=== PATIENT | male | born 1955 | race American Indian/Alaskan Native ===

== ENCOUNTER 2018-10-06 16:57 | Observation (INO) | payer MEDICAID ==
--- NOTE | 2018-10-06 17:54 | Emergency Department Report ---
Blank Doc - Documentation Documentation: This is a 63-year-old male that presents with right flank pain and chest pain. Denies any SOB. This initial assessment/diagnostic orders/clinical plan/treatment(s) is/are subject to change based on patient's health status, clinical progression and re- assessment by fellow clinical providers in the ED. Further treatment and workup at subsequent clinical providers discretion. Patient/guardians urged not to elope from the ED as their condition may be serious if not clinically assessed and managed. Initial orders include: 1- Patient sent to [facility] for further evaluation and treatment 2- labs 3- EKG 4- CXR
[2018-10-06 18:17] LABS: Basophils % (Auto) 0.7 % (0.0-1.8); Eosinophils # (Auto) 0.1 K/mm3 (0.0-0.4); Hematocrit 39.6 % (35.5-45.6); Hemoglobin 13.3 gm/dl (11.8-15.2); Lymphocytes # (Auto) 1.5 K/mm3 (1.2-5.4); Lymphocytes % (Auto) 27.2 % (13.4-35.0); Mean Corpuscular HGB Conc 34 % (32-34); Mean Corpuscular Volume 94 fl (84-94); Monocytes # (Auto) 0.5 K/mm3 (0.0-0.8); Monocytes % (Auto) 9.1 % (0.0-7.3); Platelet Count 163 K/mm3 (140-440); Red Blood Count 4.23 M/mm3 (3.65-5.03); Red Cell Distribution Width 14.8 % (13.2-15.2)
[2018-10-06 18:30] LABS: BUN/Creatinine Ratio 13; Blood Urea Nitrogen 12 mg/dL (9-20); Calcium 8.9 mg/dL (8.4-10.2); Hemolysis Index 11
[2018-10-06 18:39] LABS: INR 1.03 (0.87-1.13)
[2018-10-06 18:41] LABS: Partial Thromboplastin Time 24.9 Sec. (24.2-36.6)
--- NOTE | 2018-10-06 19:28 | XRay Report ---
PROCEDURE: XR CHEST ROUTINE 2V TECHNIQUE: PA and lateral chest radiographs were obtained. HISTORY: Chest Pain COMPARISONS: None. FINDINGS: Heart: Normal. Mediastinum/Vessels: Normal. Lungs/Pleural space: Normal. Bony thorax: No acute osseous abnormality. Other: Surgical clips in the right axilla noted IMPRESSION: No acute cardiopulmonary process seen.. This document is electronically signed by Dayanara Aleman MD., October 06 2018 07:27:10 PM ET
[2018-10-06] MEDS ORDERED: SUBLIMAZE IV ONE (20:55)
[2018-10-06] MEDS ORDERED: ZOFRAN IV ONE (20:55)
--- NOTE | 2018-10-06 20:59 | Emergency Department Report ---
HPI - General Chief Complaint: Abdominal Pain Time Seen by Provider: 10/06/18 17:53 - HPI HPI: Marcus Uribe The patient is 61-year-old male presenting with chief complaint of chest pain and abdominal pain. The patient states for the past 2-3 months he's had pain in his left chest and right abdomen. Patient states the pain in the left chest has been constant and sharp in nature. Patient states at times his had nausea but denies vomiting or shortness of breath. Patient states sometimes she has diaphoresis with this pain. Patient admits to a nonproductive cough and pleurisy. Patient states his right-sided abdominal pain was initially intermittent but for the past 2 days and has been constant. Patient states has been no change in his abdominal pain with meals. Patient denies any unexplained weight loss or fevers. Patient currently gets his pain score of 10/10 Location: [See above] Duration: [See above] Quality: [See above] Severity: [See above] Modifying factors: [see above] Context: [see above] Mode of transportation: [not driving] ED Past Medical Hx - Past Medical History Previous Medical History?: Yes Hx Hypertension: Yes Additional medical history: Gout - Surgical History Past Surgical History?: Yes Additional Surgical History: skin graft- left leg - Family History Family history: no significant - Social History Smoking Status: Former Smoker (none 2 years) Substance Use Type: None (denies illicit drug use), Alcohol (occasional) - Medications Home Medications: Home Medications Medication Instructions Recorded Confirmed Last Taken Type methOCARBAMOL [Robaxin TAB] 750 mg PO BID PRN #12 tab 07/07/13 07/17/13 Unknown Rx Metoprolol [Lopressor TAB] 25 mg PO BID #60 tablet 07/20/13 Unknown Rx Metoprolol [Lopressor TAB] 25 mg PO BID #60 tablet 07/20/13 Unknown Rx Pantoprazole [Protonix] 20 mg OD QDAY #30 tablet. 07/20/13 Unknown Rx Simvastatin 20 mg PO QHS #30 tablet 07/20/13 Unknown Rx Simvastatin (Nf) [Zocor] 20 mg PO QHS #30 tablet 07/20/13 Unknown Rx methOCARBAMOL [Robaxin TAB] 750 mg PO BID #60 tablet 07/20/13 Unknown Rx Ibuprofen [Motrin 800 MG tab] 800 mg PO Q8HR PRN #20 tablet 08/17/15 Unknown Rx Cyclobenzaprine HCl [Flexeril 5 MG 5 mg PO Q8HR PRN #15 tab 09/03/15 Unknown Rx TAB] ED Review of Systems ROS: Stated complaint: CHEST PAIN/R SIDE PAIN Other details as noted in HPI Constitutional: denies: fever Eyes: denies: eye pain ENT: denies: throat pain Respiratory: denies: shortness of breath Cardiovascular: chest pain Endocrine: no symptoms reported Gastrointestinal: abdominal pain, nausea. denies: vomiting Genitourinary: denies: dysuria Musculoskeletal: denies: back pain Neurological: denies: headache Physical Exam - Physical Exam Vital Signs: Vital Signs 10/06/18 17:54 Temperature 98.6 F Pulse Rate 76 Respiratory 17 Rate Blood Pressure 136/91 O2 Sat by Pulse 98 Oximetry Physical Exam: GENERAL: The patient is well-developed well-nourished male lying on stretcher not appearing to be in acute distress. [] HEENT: Normocephalic. Atraumatic. Extraocular motions are intact. Patient has moist mucous membranes. NECK: Supple. Trachea midline CHEST/LUNGS: Clear to auscultation. There is no respiratory distress noted. HEART/CARDIOVASCULAR: Regular. There is no tachycardia. There is no gallop rub or murmur. ABDOMEN: Abdomen is soft, nontender. Patient has normal bowel sounds. There is no abdominal distention. SKIN: There is no rash. There is no edema. There is no diaphoresis. NEURO: The patient is awake, alert, and oriented. The patient is cooperative. The patient has normal speech MUSCULOSKELETAL: There is no evidence of acute injury. ED Course Vital Signs 10/06/18 17:54 Temperature 98.6 F Pulse Rate 76 Respiratory 17 Rate Blood Pressure 136/91 O2 Sat by Pulse 98 Oximetry - Consultations Consultation #1: 10/06/18 18:[address] Chase-no STEMI ED Medical Decision Making - Lab Data Result diagrams: 10/06/18 18:03 10/06/18 18:03 Laboratory Tests 10/06/18 10/06/18 10/06/18 18:03 18:03 18:03 WBC 5.6 RBC 4.23 Hgb 13.3 Hct 39.6 MCV 94 MCH 31 MCHC 34 RDW 14.8 Plt Count 163 Lymph % (Auto) 27.2 [place] % (Auto) 9.1 H Eos % (Auto) 1.0 Baso % (Auto) 0.7 Lymph # 1.5 [place] # 0.5 Eos # 0.1 Baso # 0.0 Seg Neutrophils % 62.0 Seg Neutrophils # 3.5 PT 13.2 INR 1.03 APTT 24.9 Sodium 136 L Potassium 4.1 Chloride 100.8 Carbon Dioxide 26 Anion Gap 13 BUN 12 Creatinine 0.9 Estimated GFR > 60 BUN/Creatinine Ratio 13 Glucose 105 H Calcium 8.9 Troponin T < 0.010 10/06/18 20:14 WBC RBC Hgb Hct MCV MCH MCHC RDW Plt Count Lymph % (Auto) [place] % (Auto) Eos % (Auto) Baso % (Auto) Lymph # [place] # Eos # Baso # Seg Neutrophils % Seg Neutrophils # PT INR APTT Sodium Potassium Chloride Carbon Dioxide Anion Gap BUN Creatinine Estimated GFR BUN/Creatinine Ratio Glucose Calcium Troponin T < 0.010 - EKG Data -: EKG Interpreted by Me EKG shows normal: sinus rhythm Rate: normal - EKG Data When compared to previous EKG there are: previous EKG unavailable Interpretation: nonspecific ST-T wave carito - Radiology Data Radiology results: report reviewed (chest x-ray, CT chest, CT abdomen and pelvis), image reviewed (chest x-ray, CT chest, CT abdomen and pelvis) interpreted by me: Chest x-ray-no focal infiltrates, no pneumothorax [address] [address] XRay Report Signed Patient: SHERIF THAKKAR MR#: [id number] : 1955 Acct:[id number] Age/Sex: 63 / M ADM Date: 10/06/18 Loc: ED Attending Dr: Ordering Physician: MONA HANNA NP Date of Service: 10/06/18 Procedure(s): XR chest routine 2V Accession Number(s): [id number] cc: MONA HANNA NP Fluoro Time In Minutes: PROCEDURE: XR CHEST ROUTINE 2V TECHNIQUE: PA and lateral chest radiographs were obtained. HISTORY: Chest Pain COMPARISONS: None. FINDINGS: Heart: Normal. Mediastinum/Vessels: Normal. Lungs/Pleural space: Normal. Bony thorax: No acute osseous abnormality. Other: Surgical clips in the right axilla noted IMPRESSION: No acute cardiopulmonary process seen.. This document is electronically signed by Dayanara Aleman MD., October 06 2018 07:27:10 PM ET Transcribed By: [facility] Dictated By: DAYANARA ALEMAN MD Electronically Authenticated By: DAYANARA ALEMAN MD Signed Date/Time: 10/06/181927 DD/ [address] [address] Cat Scan Report Signed Patient: SHERIF THAKKAR MR#: [id number] : 1955 Acct:[id number] Age/Sex: 63 / M ADM Date: 10/06/18 Loc: ED Attending Dr: Ordering Physician: LEXUS CROUCH MD Date of Service: 10/06/18 Procedure(s): CT angio chest Accession Number(s): [id number] cc: LEXUS CROUCH MD PROCEDURE: CT ANGIO CHEST TECHNIQUE: Computerized tomographic angiography of the chest was performed after the IV injection of iodinated nonionic contrast including image processing. The image data was postprocessed using 2-dimensional multiplanar reformatted (MPR) and 3-dimensional (MIP and/or volume rendered) techniques. Automated exposure control, adjustment of mA and/or kV according to patient size, or iterative reconstruction dose optimization techniques were utilized. CT DOSE LENGTH PRODUCT: 2044.7 mGycm HISTORY: left chest pain, pleurisy COMPARISONS: CXR 10/06/2018 . FINDINGS: Heart and pericardium: Normal. Thoracic aorta: Mild calcification of aorta is seen. Pulmonary vasculature: Normal. No evidence for PE Lymph nodes: No enlarged thoracic lymph nodes. Lungs: Normal. Pleural space: No effusion, thickening, or pneumothorax. Musculoskeletal structures: No significant abnormality. Upper abdominal structures: No significant abnormality. IMPRESSION: No acute intrathoracic abnormality. No evidence for PE. This document is electronically signed by Dayanara Aleman MD., October 06 2018 10:28:59 PM ET Transcribed By: EUGENIA Dictated By: DAYANARA ALEMAN MD Electronically Authenticated By: DAYANARA ALEMAN MD Signed Date/Time: 10/06/182230 DD/ 04 TD/TT: 10/06/182204 [address] [address] Cat Scan Report Signed Patient: SHERIF THAKKAR MR#: [id number] : 1955 Acct:[id number] Age/Sex: 63 / M ADM Date: 10/06/18 Loc: ED Attending Dr: Ordering Physician: LEXUS CROUCH MD Date of Service: 10/06/18 Procedure(s): CT abdomen pelvis w con Accession Number(s): [id number] cc: LEXUS CROUCH MD PROCEDURE: CT ABDOMEN PELVIS W CON TECHNIQUE: Computerized axial tomography of the abdomen and pelvis was performed after the administration of IV iodinated nonionic contrast. HISTORY: right-sided abdominal pain COMPARISONS: None . FINDINGS: Visualized lower thorax: No significant abnormality. Liver: Normal size and attenuation. Spleen: Normal size and attenuation. Gallbladder and biliary system: Gallbladder is present. No biliary ductal dilatation. Pancreas: Normal. Adrenals: Normal. Kidneys: Normal. GI tract: No appendiceal inflammation. No bowel obstruction or inflammation. Lymph nodes and mesentery: Normal. Vasculature: Aortic atherosclerotic calcification. Bladder: Normal. Reproductive organs: Prostate gland measures 4.9 cm transverse. Prostate calcifications are present. Peritoneum: No free fluid. Musculoskeletal structures: There are degenerative disc changes at L4-5 and L5- S1. Endplate erosions are seen at L5-S1, which could be degenerative.. Other: None. IMPRESSION: No bowel obstruction or inflammation. No hydronephrosis or urolithiasis. There are degenerative disc changes at L4-5 and L5-S1. Endplate erosions are seen at L5/S1, which could be chronic. However if there is low back pain and signs of infection, further evaluation should be made to exclude discitis/osteomyelitis. Correlate clinically. Finding was discussed by telephone with Dr. Crouch at 11:07 PM Eastern standard time on 10/06/2018. This document is electronically signed by Ana Murillo MD., October 06 2018 11:11:47 PM ET Transcribed By: [facility] Dictated By: ANA MURILLO M.D. Electronically Authenticated By: ANA MURILLO M.D. Signed Date/Time: 10/06/18 2313 DD/ 17 TD/TT: 10/06/182217 - Differential Diagnosis ACS, pericarditis, PE, cholelithiasis, colonic mass Critical care attestation.: If time is entered above; I have spent that time in minutes in the direct care of this critically ill patient, excluding procedure time. ED Disposition Clinical Impression: Chest pain Disposition: OP ADMIT IP TO THIS HOSP Is pt being admited?: Yes Does the pt Need Aspirin: Yes Condition: Stable Instructions: Chest Pain (ED) Referrals: ISABELA BRAND MD [Primary Care Provider] - 3-5 Days Time of Disposition: 23:45 (hospitalist paged (Dr. Jannette Prescott))
--- NOTE | 2018-10-06 22:31 | Cat Scan Report ---
PROCEDURE: CT ANGIO CHEST TECHNIQUE: Computerized tomographic angiography of the chest was performed after the IV injection of iodinated nonionic contrast including image processing. The image data was postprocessed using 2-di mensional multiplanar reformatted (MPR) and 3-dimensional (MIP and/or volume rendered) techniques. Au tomated exposure control, adjustment of mA and/or kV according to patient size, or iterative reconstr uction dose optimization techniques were utilized. CT DOSE LENGTH PRODUCT: 2044.7 mGycm HISTORY: left chest pain, pleurisy COMPARISONS: CXR 10/06/2018 . FINDINGS: Heart and pericardium: Normal. Thoracic aorta: Mild calcification of aorta is seen. Pulmonary vasculature: Normal. No evidence for PE Lymph nodes: No enlarged thoracic lymph nodes. Lungs: Normal. Pleural space: No effusion, thickening, or pneumothorax. Musculoskeletal structures: No significant abnormality. Upper abdominal structures: No significant abnormality. IMPRESSION: No acute intrathoracic abnormality. No evidence for PE. This document is electronically signed by Dayanara Aleman MD., October 06 2018 10:28:59 PM ET
--- NOTE | 2018-10-06 23:13 | Cat Scan Report ---
PROCEDURE: CT ABDOMEN PELVIS W CON TECHNIQUE: Computerized axial tomography of the abdomen and pelvis was performed after the administr ation of IV iodinated nonionic contrast. HISTORY: right-sided abdominal pain COMPARISONS: None . FINDINGS: Visualized lower thorax: No significant abnormality. Liver: Normal size and attenuation. Spleen: Normal size and attenuation. Gallbladder and biliary system: Gallbladder is present. No biliary ductal dilatation. Pancreas: Normal. Adrenals: Normal. Kidneys: Normal. GI tract: No appendiceal inflammation. No bowel obstruction or inflammation. Lymph nodes and mesentery: Normal. Vasculature: Aortic atherosclerotic calcification. Bladder: Normal. Reproductive organs: Prostate gland measures 4.9 cm transverse. Prostate calcifications are present. Peritoneum: No free fluid. Musculoskeletal structures: There are degenerative disc changes at L4-5 and L5-S1. Endplate erosions are seen at L5-S1, which could be degenerative.. Other: None. IMPRESSION: No bowel obstruction or inflammation. No hydronephrosis or urolithiasis. There are degenerative disc changes at L4-5 and L5-S1. Endplate erosions are seen at L5/S1, which cou ld be chronic. However if there is low back pain and signs of infection, further evaluation should be made to exclude discitis/osteomyelitis. Correlate clinically. Finding was discussed by telephone wit antonio Kilpatrick at 11:07 PM Eastern standard time on 10/06/2018. This document is electronically signed by Ana Murillo MD., October 06 2018 11:11:47 PM ET
[2018-10-06] MEDS ORDERED: ASPIRIN PO ONE (23:30)
[2018-10-06] MEDS ORDERED: NITRO-BID 2% TP ONE (23:30)
[2018-10-06 23:50] LABS: Bilirubin,Urine NEG (Negative); Blood,Urine NEG (Negative); Color,Urine Yellow (Yellow); Mucus,Urine FEW /HPF; Protein,Urine <15 mg/dL mg/dL (Negative); Urobilinogen,Urine < 2.0 mg/dL (<2.0); WBC,Urine < 1.0 /HPF (0.0-6.0)
--- NOTE | 2018-10-06 23:59 | History and Physical Report ---
History of Present Illness Date of examination: 10/06/18 History of present illness: 63-year-old man with history of hypertension complaints of chest in the epigastric area and right flank pain that started 4 months ago. HE has not seen a physician for the pain. He described as a sharp, constant, intensity 5/10,no radiation, relieved with pain medications in ER. He denies nausea vomiting, diaphoresis, shortness of breath no palpitations Review of systems Constitutional: no weight loss, chills, fever Ears, eyes, nose, mouth and throat: no nasal congestion, no nasal discharge, no sinus pressure, no vision change, no red eye. Neck: No neck pain or rigidity. Cardiovascular: no palpitations Respiratory: no cough, shortness of breath Gastrointestinal: no hematochezia, abdominal pain Genitourinary : no frequency , no hematuria Musculoskeletal: no joint swelling or muscle ache Integumentary: no rash, no pruritis Neurological: no parathesias, no focal weakness Endocrine: no cold or heat intolerance, no polyuria or polydipsia Hematologic/Lymphatic: no easy bruising, no easy bleeding, no gland swelling Allergic/Immunologic: no urticaria, no angioedema. PAST MEICAL HISTORY:hypertension PAST SURGICAL HISTORY:SKIN GRAFT SOCIAL HISTORY:No tobacco, drugs, +alcohol FAMILY HISTORY:hypertension Medications and Allergies Allergies Allergy/AdvReac Type Severity Reaction Status Date / Time lisinopril Allergy Angioedema Verified 04/20/13 08:57 Home Medications Medication Instructions Recorded Confirmed Last Taken Type Pantoprazole [Protonix TAB] 20 mg OD QDAY #30 tablet. 07/20/13 10/07/18 10/06/18 09:00 Rx Simvastatin 20 mg PO QHS #30 tablet 07/20/13 10/07/18 10/06/18 21:00 Rx Simvastatin (Nf) [Zocor TAB] 20 mg PO QHS #30 tablet 07/20/13 10/07/18 10/06/18 21:00 Rx Ibuprofen [Motrin 800 MG tab] 800 mg PO Q8HR PRN #20 tablet 08/17/15 10/07/18 Unknown Rx Cyclobenzaprine HCl [Flexeril 5 MG 5 mg PO Q8HR PRN #15 tab 09/03/15 10/07/18 Unknown Rx TAB] Colchicine 0.6 mg PO BID #10 capsule 10/08/18 Unknown Rx Ibuprofen [Motrin 400 MG tab] 400 mg PO Q6H PRN #20 tablet 10/08/18 Unknown Rx amLODIPine [Norvasc] 5 mg PO QDAY #30 tablet 10/08/18 Unknown Rx Exam - Physical Exam Narrative exam: General Apperance: The patient lying in bed, breathing comfortable HEENT: Normocephalic, atraumatic. Pupils equally round and reactive to light, EOMI, no sclericterus or JVD or thyromegaly or nodule. , no carotid bruit, mucous membranes moist, no exudate or erythema Heart: S1-S2, regular is rhythm Lungs: Clear to auscultation bilaterally, breathing comfortable Abdomen: Positive bowel sounds, soft, nontender, nondistended, no organomegaly Extremities: No edema cyanosis clubbing Skin: no rash, nodule, warm and dry Neuro: cranial nerves 2-12 intact, speech is fluent, motor/sensory intact - Constitutional Vitals: Temp Pulse Resp BP Pulse Ox 98.2 F 69 20 138/90 98 10/06/18 21:11 10/06/18 21:11 10/06/18 21:15 10/06/18 21:11 10/06/18 21:15 Results - Labs CBC & Chem 7: 10/07/18 04:05 10/07/18 04:05 Labs: Abnormal lab results 10/06/18 10/06/18 Range/Units 18:03 18:03 [place] % (Auto) 9.1 H (0.0-7.3) % Sodium 136 L (137-145) mmol/L Glucose 105 H (75-100) mg/dL - Imaging and Cardiology EKG: image reviewed CT scan - abdomen: report reviewed CT scan - chest: report reviewed CT scan - pelvis: report reviewed Assessment and Plan Assessment Chest pain hypertension Plan Admit to medicine Check cardiac enzymes, stress test DVT prophalaxis, IV morphine
[2018-10-07] MEDS ORDERED: TYLENOL PO PRN (01:20)
[2018-10-07] MEDS ORDERED: SODIUM CHLORIDE FLUSH SYRINGE 10 ML IV PRN (01:20)
[2018-10-07] MEDS ORDERED: ZOFRAN IV PRN (01:20)
[2018-10-07 05:15] LABS: Basophils # (Auto) 0.1 K/mm3 (0.0-0.1); Basophils % (Auto) 1.2 % (0.0-1.8); Eosinophils # (Auto) 0.1 K/mm3 (0.0-0.4); Eosinophils % (Auto) 2.4 % (0.0-4.3); Hematocrit 35.5 % (35.5-45.6); Hemoglobin 12.1 gm/dl (11.8-15.2); Lymphocytes # (Auto) 1.8 K/mm3 (1.2-5.4); Lymphocytes % (Auto) 34.4 % (13.4-35.0); Mean Corpuscular HGB Conc 34 % (32-34); Mean Corpuscular Volume 94 fl (84-94); Monocytes # (Auto) 0.4 K/mm3 (0.0-0.8); Monocytes % (Auto) 7.5 % (0.0-7.3); Platelet Count 142 K/mm3 (140-440); Red Blood Count 3.77 M/mm3 (3.65-5.03); Red Cell Distribution Width 14.6 % (13.2-15.2)
[2018-10-07 05:47] LABS: BUN/Creatinine Ratio 11; Blood Urea Nitrogen 10 mg/dL (9-20); Calcium 8.7 mg/dL (8.4-10.2); Hemolysis Index 7
[2018-10-07] MEDS: SODIUM CHLORIDE FLUSH SYRINGE 10 ML IV SCH ×2 (09:42→21:53)
[2018-10-07] MEDS: LOVENOX SUB-Q SCH (09:42)
--- NOTE | 2018-10-07 17:40 | Progress Note ---
Assessment and Plan Assessment and plan: Right lower chest pain. CT chest unremarkable Continue analgesics for pain control Right flank pain CT Abd, no renal lesions will get US Abd Hypertension Monitor BP Continue Amlodipine Hyperlipidemia Continue statin FULL CODE STATUS History Interval history: Right lower cheest and right flank pain Hospitalist Physical - Physical exam Narrative exam: Gen: Not in acute distress, lying in bed, HEENT: Normocephalic, atraumatic Neck: supple, no JVD Heart: S1 and S2 reg, no murmurs, rubs or gallop Lungs: Clear, no crackles, no wheeze Abd: soft, non tender, non distended, normal BS Ext: No edema, no clubbing, no cyanosis, Neuro: Awake,alert, oriented x 3, moves all ext, non focal Psych:Normal mood - Constitutional Vitals: Temp Pulse Resp BP Pulse Ox 98.5 F 58 L 14 144/88 97 10/07/18 17:07 10/07/18 17:07 10/07/18 17:07 10/07/18 17:07 10/07/18 17:07 Results - Labs CBC & Chem 7: 10/07/18 04:05 10/07/18 04:05 Labs: Laboratory Last Values WBC 5.2 K/mm3 (4.5-11.0) 10/07/18 04:05 RBC 3.77 M/mm3 (3.65-5.03) 10/07/18 04:05 Hgb 12.1 gm/dl (11.8-15.2) 10/07/18 04:05 Hct 35.5 % (35.5-45.6) 10/07/18 04:05 MCV 94 fl (84-94) 10/07/18 04:05 MCH 32 pg (28-32) 10/07/18 04:05 MCHC 34 % (32-34) 10/07/18 04:05 RDW 14.6 % (13.2-15.2) 10/07/18 04:05 Plt Count 142 K/mm3 (140-440) 10/07/18 04:05 Lymph % (Auto) 34.4 % (13.4-35.0) 10/07/18 04:05 [place] % (Auto) 7.5 % (0.0-7.3) H 10/07/18 04:05 Eos % (Auto) 2.4 % (0.0-4.3) 10/07/18 04:05 Baso % (Auto) 1.2 % (0.0-1.8) 10/07/18 04:05 Lymph # 1.8 K/mm3 (1.2-5.4) 10/07/18 04:05 [place] # 0.4 K/mm3 (0.0-0.8) 10/07/18 04:05 Eos # 0.1 K/mm3 (0.0-0.4) 10/07/18 04:05 Baso # 0.1 K/mm3 (0.0-0.1) 10/07/18 04:05 Seg Neutrophils % 54.5 % (40.0-70.0) 10/07/18 04:05 Seg Neutrophils # 2.8 K/mm3 (1.8-7.7) 10/07/18 04:05 PT 13.2 Sec. (12.2-14.9) 10/06/18 18:03 INR 1.03 (0.87-1.13) 10/06/18 18:03 APTT 24.9 Sec. (24.2-36.6) 10/06/18 18:03 Sodium 140 mmol/L (137-145) 10/07/18 04:05 Potassium 3.5 mmol/L (3.6-5.0) L 10/07/18 04:05 Chloride 103.5 mmol/L (98-107) 10/07/18 04:05 Carbon Dioxide 23 mmol/L (22-30) 10/07/18 04:05 17 mmol/L 10/07/18 04:05 BUN 10 mg/dL (9-20) 10/07/18 04:05 0.9 mg/dL (0.8-1.5) 10/07/18 04:05 Estimated GFR > 60 ml/min 10/07/18 04:05 11 % 10/07/18 04:05 Glucose 141 mg/dL (75-100) H 10/07/18 04:05 Calcium 8.7 mg/dL (8.4-10.2) 10/07/18 04:05 < 0.010 ng/mL (0.00-0.029) 10/06/18 20:14 Yellow (Yellow) 10/06/18 23:26 Clear (Clear) 10/06/18 23:26 5.0 (5.0-7.0) 10/06/18 23:26 Ur Specific [place] > 1.059 (1.003-1.030) H 10/06/18 23:26 <15 mg/dl mg/dL (Negative) 10/06/18 23:26 Neg mg/dL (Negative) 10/06/18 23:26 Neg mg/dL (Negative) 10/06/18 23:26 Neg (Negative) 10/06/18 23:26 Neg (Negative) 10/06/18 23:26 Neg (Negative) 10/06/18 23:26 < 2.0 mg/dL (<2.0) 10/06/18 23:26 Ur Leukocyte Esterase Neg (Negative) 10/06/18 23:26 < 1.0 /HPF (0.0-6.0) 10/06/18 23:26 1.0 /HPF (0.0-6.0) 10/06/18 23:26 Few /HPF 10/06/18 23:26 Active Medications - Current Medications Current Medications: Generic Name Dose Route Start Last Admin Trade Name Freq PRN Reason Stop Dose Admin Acetaminophen 650 mg 10/07/18 01:20 Tylenol PO Q4H PRN Pain MILD(1-3)/Fever >100.5/DENNIS Enoxaparin Sodium 40 mg 10/07/18 10:00 10/07/18 09:42 Lovenox SUB-Q 40 mg QDAY DOMINIC Administration Morphine Sulfate 2 mg 10/07/18 01:20 Morphine IV Q4H PRN Pain, Moderate (4-6) Ondansetron HCl 4 mg 10/07/18 01:20 Zofran IV Q8H PRN Nausea And Vomiting Sodium Chloride 10 ml 10/07/18 10:00 10/07/18 09:42 Sodium Chloride Flush Syringe 10 Ml IV 10 ml BID DOMINIC Administration Sodium Chloride 10 ml 10/07/18 01:20 Sodium Chloride Flush Syringe 10 Ml IV PRN PRN LINE FLUSH
[2018-10-07] MEDS: MORPHINE IV PRN (21:52)
[2018-10-08] MEDS: MORPHINE IV PRN ×2 (02:10→08:31)
[2018-10-08] MEDS: LOVENOX SUB-Q SCH (09:36)
[2018-10-08] MEDS: SODIUM CHLORIDE FLUSH SYRINGE 10 ML IV SCH (09:37)
--- NOTE | 2018-10-08 10:18 | Ultrasound Report ---
Renal sonogram: History: Pain right flank pain. Findings: Right kidney 9.3 x 4.6 x 5.1 cm. Cortical thickness is 1.1 cm. Left kidney 10 x 4.9 x 5.1 cm. Cortical thickness 1.5 cm. Linear echogenic foci are noted at right and left kidney without acoustic shadowing suggestive of calculi. Impression: Nonobstructing calculi right and left kidney. Impression:
[2018-10-08] MEDS ORDERED: IBUPROFEN PO PRN (11:51)
[2018-10-08] MEDS ORDERED: TORADOL IV STA (12:04)
[2018-10-08] MEDS ORDERED: COLCHICINE PO SCH (13:00)
[2018-10-08] MEDS ORDERED: NORVASC PO SCH (15:00)
--- NOTE | 2018-10-08 15:10 | Discharge Summary ---
Providers - Providers Date of Admission: 10/06/18 23:58 Date of discharge: 10/08/18 Attending physician: SURINDER WREN Primary care physician: ISABELA BRAND Hospitalization Condition: Fair Hospital course: Patient is 63-year-old man with history of hypertension, presented with right sided chest pain and right flank pain that started 4 months ago but worse over p ast 1 day. He has not seen a physician for the pain. He described as a sharp, constant, intensity 5/10,no radiation. he was seen and evaluated in Emergency Department. CT Angio chest was negative for pulmonary embolism. CT Abdomen was unremarkable. He was started on narcotics, admitted. Ultrasound kidneys reveal bilateral non-obstructing renal calculi but no hydronephrosis. With narcotics, pain subsided and he was discharged home on 10/08/18 to follow as outpatient. Disposition: TO HOME OR SELFCARE - Discharge Diagnoses (1) Chest pain Status: Acute (2) Hypertension Status: Acute (3) Hyperlipidemia Status: Acute (4) Musculoskeletal chest pain Status: Acute Core Measure Documentation - Palliative Care Palliative Care/ Comfort Measures: Not Applicable - Core Measures Any of the following diagnoses?: none Exam - Constitutional Vitals: Temp Pulse Resp BP Pulse Ox 97.8 F 54 L 16 178/99 96 10/08/18 12:40 10/08/18 12:40 10/08/18 12:40 10/08/18 12:40 10/08/18 12:40 Plan Activity: advance as tolerated Diet: low fat, low cholesterol, low salt Additional Instructions: 1.Follow up with PCP or [facility] in 1 week. 2. Follow up with Dr. camar[place], urology for bilateral kidney stones, non- obstructing. Follow up with: ISABELA BRAND MD [Primary Care Provider] - 3-5 Days Prescriptions: Colchicine 0.6 mg PO BID #10 capsule Ibuprofen [Motrin 400 MG tab] 400 mg PO Q6H PRN #20 tablet PRN Reason: Pain, Moderate (4-6) amLODIPine [Norvasc] 5 mg PO QDAY #30 tablet
[2018-10-08] MEDS ORDERED: APRESOLINE IV STA (15:22)
[2018-10-08 17:28] VITALS: BP 149/92
== END 2018-10-08 18:40 | disposition home or self-care (01) ==
LOC: ED 16:57 → 4A 23:58
PROVIDERS: ADMIT Internal Medicine; ATTEND Internal Medicine
DX: R07.89 Other chest pain (principal); I10 Essential (primary) hypertension; E78.5 Hyperlipidemia, unspecified; M10.9 Gout, unspecified; Z98.890 Other specified postprocedural states; Z79.899 Other long term (current) drug therapy
CPT/HCPCS: 36415; 71046; 71275; 74177; 76770; 80048; 81001; 84484; 84550; 85025; 85610; 85730; 93005; 93010; 96372; 96374; 96375; 96376; 99284; G0378; J1650; J1885; J2270; J2405; J3010; Q9967